=== PATIENT | male | born 1990 | race Caucasian/White ===

== ENCOUNTER 2021-11-02 11:50 | Emergency (ER) | payer BC, MEDICAID ==
[2021-11-02] MEDS ORDERED: Sodium Chloride 0.9% 1,000 ML IV ONE ×2 (12:18→12:56)
[2021-11-02] MEDS ORDERED: Ondansetron 4 MG/2 ML SDV IVPUSH ONE (12:18)
[2021-11-02 12:52] LABS: ANION GAP 10.8 meq/L (7-15); CHLORIDE,CL 106 mmol/L (98-107); SODIUM,NA 140 mmol/L (136-145)
[2021-11-02] MEDS ORDERED: Promethazine 25 MG/ML SDV IM ONE (13:07)
[2021-11-02] MEDS ORDERED: Loperamide 2 MG Tab PO ONE (13:07)
[2021-11-02 13:15] LABS: CORONAVIRUS COVID-19 NAA NEGATIVE (NEGATIVE); RESPIRATORY SYNCYTIAL VIR NAA NEGATIVE (NEGATIVE)
--- NOTE | 2021-11-02 14:13 | EDM.PDOC ---
ED HPI GENERAL MEDICAL PROBLEM - General Chief Complaint: Gastrointestinal Problem Stated Complaint: vomiting, diarrhea Time Seen by Provider: 11/02/21 12:05 Source of Information: Reports: Patient History Limitations: Reports: No Limitations - History of Present Illness INITIAL COMMENTS - FREE TEXT/NARRATIVE: Patient comes to ER with 24 hour history of emesis/loose stools. Nonbloody. No fever. No URI complaints. Unable to keep any fluid down. frontal headache Pain Score (Numeric/FACES): 3 - Related Data Allergies Allergy/AdvReac Type Severity Reaction Status Date / Time No Known Allergies Allergy Verified 11/02/21 11:51 Home Meds: Home Meds Ondansetron [Zofran ODT] 4 mg PO Q6H PRN #6 tab.dis 11/02/21 [Rx] PARoxetine HCL [Paroxetine HCl] 1 tab PO DAILY 11/02/21 [History] PARoxetine HCl [Paxil] 1 tab PO DAILY 11/02/21 [History] Past Medical History Musculoskeletal History: Reports: Fracture Other Musculoskeletal History: right foot Psychiatric History: Reports: Anxiety - Past Surgical History HEENT Surgical History: Reports: Adenoidectomy, Oral Surgery, Tonsillectomy Social & Family History - Tobacco Use Tobacco Use Status *Q: Never Tobacco User - Caffeine Use Caffeine Use: Reports: Soda Other Caffeine Use: 2 24 oz bottles of pop - Recreational Drug Use Recreational Drug Use: No ED ROS GENERAL - Review of Systems Review Of Systems: See Below Constitutional: Reports: Chills, Malaise, Decreased Appetite. Denies: Fever, Night Sweats, Diaphoresis HEENT: Reports: No Symptoms Respiratory: Reports: No Symptoms Cardiovascular: Reports: No Symptoms GI/Abdominal: Reports: Diarrhea, Nausea, Vomiting. Denies: Abdominal Pain, Hematemesis, Hematochezia : Reports: No Symptoms Musculoskeletal: Reports: No Symptoms Skin: Reports: No Symptoms Neurological: Reports: No Symptoms Psychiatric: Reports: No Symptoms ED EXAM, GENERAL - Physical Exam Exam: See Below Exam Limited By: No Limitations General Appearance: Alert, WD/WN, Mild Distress Eye Exam: Bilateral Eye: EOMI, PERRL Ears: Normal External Exam, Normal Canal, Hearing Grossly Normal Nose: No: Nasal Deformity, Nasal Swelling, Nasal Drainage Throat/Mouth: Normal Voice, No Airway Compromise Head: Atraumatic, Normocephalic Neck: Normal Inspection, Supple, Non-Tender, Full Range of Motion Respiratory/Chest: No Respiratory Distress, Lungs Clear, Normal Breath Sounds, No Accessory Muscle Use Cardiovascular: Regular Rate, Rhythm, No Murmur GI/Abdominal: Soft, Non-Tender, Abnormal Bowel Sounds (diminished) (Male) Exam: Deferred Rectal (Males) Exam: Deferred Back Exam: Normal Inspection Extremities: Normal Range of Motion, Non-Tender, Slow Capillary Refill Neurological: Alert, Oriented, Normal Cognition, Normal Gait, No Motor/Sensory Deficits Psychiatric: Normal Affect, Normal Mood Skin Exam: Warm, Dry, Intact, Normal Color Course - Vital Signs Last Recorded V/S: Last Vital Signs Temp 36.1 C 11/02/21 11:56 Pulse 89 11/02/21 11:56 Resp 18 11/02/21 11:56 BP 130/96 H 11/02/21 11:56 Pulse Ox 99 11/02/21 11:56 - Orders/Labs/Meds Labs: Laboratory Tests 11/02/21 11/02/21 11/02/21 Range/Units 12:15 12:15 12:15 WBC 5.4 (4.0-10.2) K/uL RBC 5.93 H (4.33-5.41) M/uL Hgb 17.7 H (13.1-16.8) g/dL Hct 50.0 H (39.0-49.0) % MCV 84.3 (84.0-98.0) fL MCH 29.8 (28.2-33.3) pg MCHC 35.4 (31.7-36.0) g/dL RDW 12.5 (11.2-14.1) % Plt Count 156 (150-350) K/uL Neut % (Auto) 68.5 (45.0-80.0) % Lymph % (Auto) 19.1 (10.0-50.0) % Towns % (Auto) 11.6 (2.0-14.0) % Eos % (Auto) 0.6 (0.0-5.0) % Baso % (Auto) 0.2 (0.0-2.0) % Neut # (Auto) 3.73 (1.40-7.00) K/uL Lymph # (Auto) 1.04 (0.50-3.50) K/uL Towns # (Auto) 0.63 (0.00-1.00) K/uL Eos # (Auto) 0.03 (0.00-0.50) K/uL Baso # (Auto) 0.01 (0.00-0.20) K/uL Sodium 140 (136-145) mmol/L Potassium 3.8 (3.5-5.1) mmol/L Chloride 106 (98-107) mmol/L Carbon Dioxide 23.2 (21.0-32.0) mmol/L Anion Gap 10.8 (7-15) meq/L BUN 17 (7-18) mg/dL Creatinine 1.34 H (0.51-1.17) mg/dL Est Cr Clr Drug Dosing 94.59 mL/min Estimated GFR (MDRD) > 60 mL/min Glucose 111 H (70-99) mg/dL Lactic Acid < 0.3 L (0.4-2.0) mmol/L Calcium 9.6 (8.5-10.1) mg/dL Magnesium 2.2 (1.8-2.4) mg/dL Total Bilirubin 0.6 (0.2-1.0) mg/dL AST 33 (15-37) U/L ALT 106 H (12-78) U/L Alkaline Phosphatase 68 (46-116) IU/L Total Protein 7.5 (6.4-8.2) g/dL Albumin 4.2 (3.4-5.0) g/dL Influenza Type A RNA (NEGATIVE) RSV RNA (INAAT) (NEGATIVE) Influenza Type B RNA (NEGATIVE) SARS-CoV-2 RNA (EDGAR) (NEGATIVE) 11/02/21 Range/Units 12:15 WBC (4.0-10.2) K/uL RBC (4.33-5.41) M/uL Hgb (13.1-16.8) g/dL Hct (39.0-49.0) % MCV (84.0-98.0) fL MCH (28.2-33.3) pg MCHC (31.7-36.0) g/dL RDW (11.2-14.1) % Plt Count (150-350) K/uL Neut % (Auto) (45.0-80.0) % Lymph % (Auto) (10.0-50.0) % Towns % (Auto) (2.0-14.0) % Eos % (Auto) (0.0-5.0) % Baso % (Auto) (0.0-2.0) % Neut # (Auto) (1.40-7.00) K/uL Lymph # (Auto) (0.50-3.50) K/uL Towns # (Auto) (0.00-1.00) K/uL Eos # (Auto) (0.00-0.50) K/uL Baso # (Auto) (0.00-0.20) K/uL Sodium (136-145) mmol/L Potassium (3.5-5.1) mmol/L Chloride (98-107) mmol/L Carbon Dioxide (21.0-32.0) mmol/L Anion Gap (7-15) meq/L BUN (7-18) mg/dL Creatinine (0.51-1.17) mg/dL Est Cr Clr Drug Dosing mL/min Estimated GFR (MDRD) mL/min Glucose (70-99) mg/dL Lactic Acid (0.4-2.0) mmol/L Calcium (8.5-10.1) mg/dL Magnesium (1.8-2.4) mg/dL Total Bilirubin (0.2-1.0) mg/dL AST (15-37) U/L ALT (12-78) U/L Alkaline Phosphatase (46-116) IU/L Total Protein (6.4-8.2) g/dL Albumin (3.4-5.0) g/dL Influenza Type A RNA Negative (NEGATIVE) RSV RNA (INAAT) Negative (NEGATIVE) Influenza Type B RNA Negative (NEGATIVE) SARS-CoV-2 RNA (EDGAR) Negative (NEGATIVE) Meds: Medications Discontinued Medications Generic Name Dose Route Start Last Admin Trade Name Freq PRN Reason Stop Dose Admin Sodium Chloride 1,000 mls @ 999 mls/hr 11/02/21 12:18 11/02/21 12:30 Normal Saline IV 11/02/21 13:18 999 mls/hr .BOLUS ONE Administration Sodium Chloride 1,000 mls @ 999 mls/hr 11/02/21 12:56 11/02/21 13:46 Normal Saline IV 11/02/21 13:56 999 mls/hr .BOLUS ONE Administration Loperamide HCl 4 mg 11/02/21 13:07 11/02/21 13:40 Loperamide 2 Mg Tab PO 11/02/21 13:08 4 mg ONETIME ONE Administration Ondansetron HCl 4 mg 11/02/21 12:18 11/02/21 12:27 Ondansetron 4 Mg/2 Ml Sdv IVPUSH 11/02/21 12:19 4 mg ONETIME ONE Administration Promethazine HCl 25 mg 11/02/21 13:07 11/02/21 13:40 Promethazine 25 Mg/Ml Sdv IM 11/02/21 13:08 25 mg ONETIME ONE Administration - Re-Assessments/Exams Free Text/Narrative Re-Assessment/Exam: 11/02/21 14:54 Elevated Hgb/creatinine indicated dehydration. Patient received 2L NS bolus in addition to Zofran. Phenergan added due to continuing nausea. Feeling much better. Negative Covid/Flu/RSV. Suspect VGE. Work slip given for last night. OK to work next scheduled shift Friday. Rx for PRN Zofran. Home/rest/advance diet as tolerated. Departure - Departure Time of Disposition: 14:44 Disposition: Home, Self-Care 01 Condition: Good Clinical Impression: Gastroenteritis, Dehydration - Discharge Information *PRESCRIPTION DRUG MONITORING PROGRAM REVIEWED*: Not Applicable *COPY OF PRESCRIPTION DRUG MONITORING REPORT IN PATIENT [place]: Not Applicable Prescriptions: Ondansetron [Zofran ODT] 4 mg PO Q6H PRN #6 tab.dis PRN Reason: Nausea Instructions: Viral Gastroenteritis, Adult, [id number], Dehydration, Adult, [id number] Referrals: Sujey Kellogg [facility] [Primary Care Provider] - Forms: ED Department Discharge, ED Return to Work/School Form Additional Instructions: Rest. Stay hydrated. Advance activity and diet as tolerated. Follow up as needed if you have additional problems/concerns. Sepsis Event Note (ED) - Focused Exam Vital Signs: Vital Signs Temp Pulse Resp BP Pulse Ox 11/02/21 11:56 36.1 C 89 18 130/96 H 99
== END 2021-11-02 14:55 | disposition home or self-care (01) ==
LOC: LL.ED 11:50
DX: K52.9 Noninfective gastroenteritis and colitis, unspecified (principal); E86.0 Dehydration; Z20.822 Contact with and (suspected) exposure to COVID-19
CPT/HCPCS: 0241U; 36415; 80053; 83605; 83735; 85025; 96372; 96374; 99283; 99284-25; A9270-GY; J2405; J2550; J7030

== ENCOUNTER 2022-05-11 22:40 | Emergency (ER) | payer OTHER, BC ==
[2022-05-11] MEDS: Ibuprofen 400 MG Tab PO ONE (23:34)
[2022-05-11] MEDS: Diphtheria,Pertussis(Acell),Tetanus Vaccine 0.5 ML Syringe IM ONE (23:54)
== END 2022-05-11 23:55 | disposition home or self-care (01) ==
LOC: SUPCPDRO 22:40 → LL.ED 22:40
DX: S70.12XA Contusion of left thigh, initial encounter (principal); S80.02XA Contusion of left knee, initial encounter; S40.819A Abrasion of unspecified upper arm, initial encounter; Z23 Encounter for immunization; V49.49XA Driver injured in collision with other motor vehicles in traffic accident, initial encounter; Y92.410 Unspecified street and highway as the place of occurrence of the external cause
CPT/HCPCS: 36415; 73590-50; 85025; 90471; 90715; 99283; 99283-25; A9270-GY

== ENCOUNTER 2023-10-31 17:54 | Emergency (ER) | payer BC, OTHER ==
[2023-10-31] MEDS ORDERED: Take Home: Amoxicillin/Clavulanate K 875-125 MG Tab, 6 Tab Pack PO ONE (18:22)
== END 2023-10-31 18:39 | disposition home or self-care (01) ==
LOC: LL.ED 17:54
DX: K04.7 Periapical abscess without sinus (principal)
CPT/HCPCS: 99282; A9270

== ENCOUNTER 2025-06-23 18:52 | Emergency (ER) | payer OTHER ==
[2025-06-23] MEDS: Amoxicillin/Clavulanate K 875-125 MG Tab PO ONE (19:21)
== END 2025-06-23 19:30 | disposition home or self-care (01) ==
LOC: LL.ED 18:52
DX: S91.332A Puncture wound without foreign body, left foot, initial encounter (principal); Z79.899 Other long term (current) drug therapy; W45.0XXA Nail entering through skin, initial encounter
CPT/HCPCS: 99283; A9270